=== PATIENT | male | born 1990 | race Two or more races ===

== ENCOUNTER → 2025-01-18 | Outpatient (BNVA) | payer MEDICAID, SELFPAY | END | disposition home or self-care (01) | PROVIDERS: PCP Nurse Practitioner Family; Referring Provider Nurse Practitioner Family; Visit Provider Urology | DX: N40.0 Benign prostatic hyperplasia without lower urinary tract symptoms (principal); Z30.2 Encounter for sterilization; E66.9 Obesity, unspecified; Z68.32 Body mass index [BMI] 32.0-32.9, adult | CPT/HCPCS: 99202; G0463 ==

== ENCOUNTER 2025-03-14 10:20 | Day surgery (SDC) | payer MEDICAID, SELFPAY ==
[2025-03-13 08:00] VITALS: BMI 31.0
[2025-03-14] VITALS (7 sets, daily range): BP systolic 108–159; BP diastolic 74–97; PULSE 70–88; RESP 12–20; TEMP 36.6–37.2; O2SAT 97–100; BMI 31.5
--- NOTE | 2025-03-14 12:18 | SUR.PHASEII ---
1218: Pt. AAOx4, vitals stable, breathing unlabored, no complaint of pain or nasuea, dressing to groin CDI, no active bleed noted, report received from Dominic GUPTA, and Clemente CRAIG.
[2025-03-14] MEDS: ONDANSETRON INJ 2 MG/ML INJ 2 ML 4 MG IV (12:38)
--- NOTE | 2025-03-14 12:55 | SUR.PHASEII ---
1255: Pt. AAOx4, vitals stable, breathing unlabored, no complaint of pain or nausea, dressing to groin CDI, no active bleed noted, pt. tolerated sips of soda well, pt. ambulated to wheelchair with steady gait and no assist, no complications. Gave discharge instructions to the pt. and his ride, both verbalized understanding and had no further questions. Pt. left with all personal belongings.
--- NOTE | 2025-03-14 12:59 | ESOP_ITS ---
Date of Procedure 03/14/25 Pre Op Diagnosis Elective sterilization Post Op Diagnosis Same Procedure Bilateral vasectomy Findings Bilateral vas cord structure matted on the right side Procedure Description Indication for procedure this is 34-year-old gentleman he is with 6 children desired bilateral vasectomy procedure and complications were discussed with patient in great detail informed consent is obtained he understood very well there is no warranty for permanent sterilization literature regarding bilateral vasectomy was provided to the patient . Procedure patient was brought to the operating room in a satisfactory condition after appropriate premedication was put on the operating table in a supine position he was appropriately identified by the operating room staff and the surgeon site scope and indications of the procedure were revisited with the patient. MAC anesthesia was given uneventfully parts were prepped and draped in a usual sterile fashion. Next the right vas deferens was palpated the cord structure thickened' 2% lidocaine with quarter percent Marcaine was instilled appropriately vertical skin incision was made proper hemostasis was secured. The cord structure on the right side were matted I was able to separate the vas deferens gingerly from the other cord structures next the vas deferens was br ought into the incision between 2 silver clips centimeter of the vas deferens was excised. The lumen of the vas deferens was diathermized with coagulation diathermy distal end of the vas deferens was buried between various fascial layers. Skin was approximated with 3-0 chromic. Similar procedure was repeated on the opposite side. Next this sterile dressings were applied. Pressure bandage was given Patient having tolerated the procedure well and was sent to recovery room in a satisfactory condition to be discharged home with full postoperative instructions were verbally as well as in writing to be followed in urology office in 6 weeks' time. Pathology / specimen None Estimated Blood Loss 0.5 Condition Stable Disposition PACU Surgeon Manolo Martinez MD Surgical Staff Operation Date: 03/14/25 12:30 Case Staff Anesthesiologist: Tatiana Allred
== END 2025-03-14 12:55 | disposition home or self-care (01) ==
PROVIDERS: PCP Family Medicine; Referring Provider Urology; Visit Provider Urology
PROC: (CPT 55250; principal; 2025-03-14 12:30)
DX: Z30.2 Encounter for sterilization (principal)
CPT/HCPCS: 55250; A4217; A4649; J2250; J2405; J2704; J3010; J3490; A9270; J0665